=== PATIENT | female | born 1935 | race Caucasian/White ===

== ENCOUNTER 2021-10-11 20:10 | Emergency (ER) | payer OTHER ==
[~2021-10-11] VITALS: Ht 170.2 cm; Wt 68.0 kg
--- NOTE | ~2021-10-11 | EMS ---
[address] [address] EMS Patient Care Report Name: ANSLEY LUGO Room #: DEP ERIN Roberts#: [id number] Admission: 10/11/21 Attend Phys: Discharge: 10/11/21 Date of : [birth year] Report #: [id number] THIS REPORT FOR: //name// Report Transmitted: 10/12/2021 07:32 EMS Care Summary [facility] MED-ACT Incident [id number] @ 10/11/2021 19:29 Incident Location [facility] [address] [address] Patient ANSLEY LUGO Female, 86 Years 1935 Patient Address [facility]. [address] [place] [address] Patient History Hypertension (HTN), Patient Allergies Lisinopril,Other drug allergy, Patient Medications Omeprazole, Lipitor, Lexapro, Losartan, Hydralazine, Amiodarone, Nitroglycerin, Synthroid, Carvedilol, Quetiapine, Potassium, Chief Complaint R Knee Pain Disposition Transported No Lights/[place] Dispatch Reason Falls Transported To [facility] Narrative Dispatched to a nursing facility for a fallen subject. [address] [address] EMS Patient Care Report Name: ANSLEY LUGO Room #: DEP Armando#: [id number] Admission: 10/11/21 Attend Phys: Discharge: 10/11/21 Date of : [birth year] Report #: [id number] Arrive on scene. Pt is supine on the ground, alert, breathing spontaneously, and supporting her own airway. Pt had an unwitnessed fall but reported her only pain in her medial R knee. Pt wasn't able to stand due to a recent surgery on her L femur following a midshaft fracture. Pt denied any LOC, head/neck/back pain. Pt was reported to be baseline confused per staff. Pt would obey requests then quickly become distracted. Pt was lifted onto the cot due to her inability to stand and place weight on her Legs. Pt reported more pain on movement. En route Pt vitals were stable, condition unchanged, and no new injuries noted. Made Pt contact. Obtained baseline vitals and hx. Transferred Pt to medic unit. Obtained additional vitals and gave radio report to receiving facility. Note: Pt's BP reading may be inaccurate due to Pt's inability to keep arms still after requested. Upon arrival at [facility], transferred Pt and Pt care to GYROSCOPE TECHNICIAN. Cleared [facility] and returned to service. EOR. Initial Vitals @20:00P: 104,BP: 191/86,SpO2: 99, @19:54P: 97,R: 21,BP: 192/78,Pain: 4/10,GCS: 14,Temp: 98F,SpO2: 96,Revised Trauma: 12, Impression Injury of Lower Leg Procedures @19:59 Surgical Mask on Patient Response: Unchanged Timeline 19:19,Call Received 19:19,Psap Call 19:29,Dispatched 19:30,En Route 19:36,On Scene 19:39,At Patient 19:48,Depart Scene 19:54,BP: 192/78 M,PULSE: 97,RR: 21 R,SPO2: 96 Ox,ETCO2: ,BG: ,PAIN: 4,GCS: 14, 19:59,Surgical Mask on Patient,Response: Unchanged 20:00,BP: 191/86 M,PULSE: 104,RR: R,SPO2: 99 Ox,ETCO2: ,BG: ,PAIN: ,GCS: , 20:03,At Destination 20:17,Call Closed Disclaimer [facility] [address] [place] [address] EMS Patient Care Report Name: ANSLEY LUGO Room #: DEP Armando#: [id number] Admission: 10/11/21 Attend Phys: Discharge: 10/11/21 Date of : [birth year] Report #: [id number] v1.1 Copyright 2021 [employer] This EMS Care Summary contains data elements from the applicable legal record (which may be displayed differently). It is designed to provide pertinent information for the following purposes: continuity of care, clinical quality, and state data reporting. The complete legal record is available to ED staff and administrators of the receiving hospital in [employer]'s Patient Tracker. All data is provided "as is."
--- NOTE | ~2021-10-11 | EMS ---
[address] [address] EMS Patient Care Report Name: ANSLEY LUGO Room #: DEP ERIN Roberts#: [id number] Admission: 10/11/21 Attend Phys: Discharge: 10/11/21 Date of : [birth year] Report #: [id number] THIS REPORT FOR: //name// Report Transmitted: 10/12/2021 06:29 EMS Care Summary [facility] MED-ACT Incident [id number] @ 10/11/2021 19:29 Incident Location [facility] [address] [address] Patient ANSLEY LUGO Female, 86 Years 1935 Patient Address [facility]. [address] [place] [address] Patient History Hypertension (HTN), Patient Allergies Lisinopril,Other drug allergy, Patient Medications Omeprazole, Lipitor, Lexapro, Losartan, Hydralazine, Amiodarone, Nitroglycerin, Synthroid, Carvedilol, Quetiapine, Potassium, Chief Complaint R Knee Pain Disposition Transported No Lights/[place] Dispatch Reason Falls Transported To [facility] Narrative Dispatched to a nursing facility for a fallen subject. [address] [address] EMS Patient Care Report Name: ANSLEY LUGO Room #: DEP Armando#: [id number] Admission: 10/11/21 Attend Phys: Discharge: 10/11/21 Date of : [birth year] Report #: [id number] Arrive on scene. Pt is supine on the ground, alert, breathing spontaneously, and supporting her own airway. Pt had an unwitnessed fall but reported her only pain in her medial R knee. Pt wasn't able to stand due to a recent surgery on her L femur following a midshaft fracture. Pt denied any LOC, head/neck/back pain. Pt was reported to be baseline confused per staff. Pt would obey requests then quickly become distracted. Pt was lifted onto the cot due to her inability to stand and place weight on her Legs. Pt reported more pain on movement. En route Pt vitals were stable, condition unchanged, and no new injuries noted. Made Pt contact. Obtained baseline vitals and hx. Transferred Pt to medic unit. Obtained additional vitals and gave radio report to receiving facility. Note: Pt's BP reading may be inaccurate due to Pt's inability to keep arms still after requested. Upon arrival at [facility], transferred Pt and Pt care to CATERER'S AIDE. [facility]ared [facility] and returned to service. EOR. Initial Vitals @20:00P: 104,BP: 191/86,SpO2: 99, @19:54P: 97,R: 21,BP: 192/78,Pain: 4/10,GCS: 14,Temp: 98F,SpO2: 96,Revised Trauma: 12, Impression Injury of Lower Leg Procedures @19:59 Surgical Mask on Patient Response: Unchanged Timeline 19:19,Call Received 19:19,Psap Call 19:29,Dispatched 19:30,En Route 19:36,On Scene 19:39,At Patient 19:48,Depart Scene 19:54,BP: 192/78 M,PULSE: 97,RR: 21 R,SPO2: 96 Ox,ETCO2: ,BG: ,PAIN: 4,GCS: 14, 19:59,Surgical Mask on Patient,Response: Unchanged 20:00,BP: 191/86 M,PULSE: 104,RR: R,SPO2: 99 Ox,ETCO2: ,BG: ,PAIN: ,GCS: , 20:03,At Destination 20:17,Call Closed Disclaimer [facility] [address] [place] [address] EMS Patient Care Report Name: ANSLEY LUGO Room #: DEP Armando#: [id number] Admission: 10/11/21 Attend Phys: Discharge: 10/11/21 Date of : [birth year] Report #: [id number] v1.1 Copyright 2021 [employer] This EMS Care Summary contains data elements from the applicable legal record (which may be displayed differently). It is designed to provide pertinent information for the following purposes: continuity of care, clinical quality, and state data reporting. The complete legal record is available to ED staff and administrators of the receiving hospital in [employer]'s Patient Tracker. All data is provided "as is."
[~2021-10-11 20:10] MED LIST: ASPIRIN325 PO; ATORVASTATIN CA40 MG PO; BENADRYL25 MG PO; CALCIUM 600 +1 EAC1 PO; CARVEDILOL12.5 MG PO; COLACE100 MG PO; EFUDEX40 GM TP; FISH OIL 1,001000 M2 PO; IMDUR 30 MG TAB30 M1 PO; KLOR-CON 10 ER10 MEQ PO; LASIX 40 MG TAB40 M2 PO; LEVOTHYROXIN0.125 M1 PO; LUTEIN20 MG PO; METAMUCIL PAC1 UDPKT PO; MILK OF MA2400 MG/10 PO; NEPHROCAPS SOFT1 CAP PO; NITROGLYCERIN0.4 MG SUBLING; OCUVITE EYE +1 EACH PO; OMEPRAZOLE20 M2 PO; ONDANSETRON HCL4 M2 PO; PACERONE 200 M200 MG PO; PHENERGAN 25 MG25 M1 PO; TRAMADOL 50 MG50 MG PO; TYLENOL325 MG PO; UNICOMPLEX M TA1 TA1 PO; VITAMIN D1000 UNI1 PO; XARELTO10 MG PO
[2021-10-11 20:12] VITALS: BP 198/84
== END 2021-10-11 21:48 | disposition home or self-care (01) ==
LOC: ER 20:10
DX: M25.562 Pain in left knee (principal); M25.561 Pain in right knee; E03.9 Hypothyroidism, unspecified; Z90.49 Acquired absence of other specified parts of digestive tract; Z90.710 Acquired absence of both cervix and uterus; Z79.899 Other long term (current) drug therapy; Z88.8 Allergy status to other drugs, medicaments and biological substances; Z91.02 Food additives allergy status; W10.9XXA Fall (on) (from) unspecified stairs and steps, initial encounter; Y93.89 Activity, other specified; Y92.89 Other specified places as the place of occurrence of the external cause; Y99.8 Other external cause status